=== PATIENT | female | born 2005 | race Caucasian/White ===

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

== ENCOUNTER → 2023-02-02 | Outpatient (REF) | payer BC ==
[~2023-02-02] MED LIST changes: -DOXY100C PO; +DOXY100C3 PO
== END ==
LOC: M LAB REF 09:41
PROVIDERS: ATTEND Nurse Practitioner Family
DX: R30.0 Dysuria (principal)

== ENCOUNTER 2023-08-17 10:38 | Day surgery (SDC) | payer BC ==
[~2023-08-17] VITALS: Ht 149.9 cm; Wt 66.1 kg
[~2023-08-17 10:38] MED LIST changes: +NS 1,000 ML IV ONE; +POLY510P14; +SENN-134
[2023-08-17] MEDS ORDERED: fentaNYL 100 MCG/2 ML INJECTION As Ordered ONE (11:03)
[2023-08-17] MEDS ORDERED: LIDOCAINE 2% 100MG/5ML SDV (FOR ANES.) As Ordered ONE (11:03)
[2023-08-17] MEDS ORDERED: propofoL 500 MG/50 ML VIAL As Ordered ONE (11:04)
[2023-08-17 12:53] VITALS: TEMP 98.1
[2023-08-17 13:21] VITALS: BP 123/66; O2SAT 99
== END 2023-08-17 13:23 | disposition home or self-care (01) ==
LOC: M OPP 10:38
PROVIDERS: ATTEND Internal Medicine Gastroenterology
DX: K58.1 Irritable bowel syndrome with constipation (principal); R93.3 Abnormal findings on diagnostic imaging of other parts of digestive tract; Z88.5 Allergy status to narcotic agent
CPT/HCPCS: 43235; 45378; J3010